=== PATIENT | male | born 2000 | race Caucasian/White ===

== ENCOUNTER 2021-09-16 13:21 | Inpatient (IN) | payer BC, SELFPAY ==
[2021-09-16 13:25] VITALS: BP 135/87; PULSE 61; RESP 16; TEMP 36.5; O2SAT 99; BMI 17.1
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
[2021-09-16 14:37] LABS: Basophils % 0.7 %; Eosinophils % 0.7 %; Hematocrit 39.2 % (42.0-52.0); Hemoglobin 13.1 g/dL (11.7-16.6); Lymphocytes # 2.2 10^3/uL (0.8-4.8); Lymphocytes % 37.7 %; Mean Corpuscular HGB Conc 33.4 g/dL (30.0-36.0); Mean Corpuscular Hemoglobin 30.6 pg (28.0-34.0); Mean Corpuscular Volume 91.6 fl (80-94); Mean Platelet Volume 10.3 fL (7.4-10.4); Monocytes # 0.5 10^3/uL (0.2-0.9); Monocytes % 7.6 %; Neutrophils # 3.12 10^3/uL (1.8-7.7); Nucleated Red Blood Cells % 0 %; Platelet Count 230 10^3/cmm (130-400); Red Blood Count 4.28 10^6/uL (4.1-5.3); Red Cell Distribution Width 12.7 % (12.1-15.1); White Blood Count 5.9 10^3/uL (4.0-10.0)
[2021-09-16 14:52] LABS: Amphetamines Screen Urine Negative (Negative); Barbiturates Screen Urine Negative (Negative); Benzodiazepines Screen Urine Negative (Negative); Cocaine Screen Urine Negative (Negative); Opiate Screen Urine Negative (Negative); PCP Screen Urine Negative (Negative); THC Screen Urine Positive (Negative)
[2021-09-16 15:03] LABS: Alanine Aminotransferase 11 U/L (0-41); Albumin Level 4.7 g/dL (3.5-5.2); Alkaline Phosphatase 54 IU/L (40-130); Anion Gap 12.6 (5-19); Aspartate Amino Transferase 18 U/L (0-40); Blood Urea Nitrogen 16 mg/dL (6-20); Calcium 9.5 mg/dL (8.5-10.5); Carbon Dioxide 24 mmol/L (22-29); Chloride 106 mmol/L (98-107); Globulin 2.5 g/dL (1.3-4.6); Glucose 92 mg/dL (65-115); Osmolality Calculated 289 mOsm/kg (285-295); Potassium 3.6 mmol/L (3.5-5.1); Sodium 139 mmol/L (136-145); Total Bilirubin 1.1 mg/dL (0.15-1.2); Total Protein 7.2 g/dL (6.6-8.7)
[2021-09-16 15:04] LABS: Acetaminophen < 5.0 ug/mL (10-30); Alcohol Level < 10 mg/dL (0-10); Salicylate < 0.3 mg/dL (3-10)
[2021-09-16 15:10] VITALS: BP 116/75; PULSE 54; RESP 16; TEMP 36; O2SAT 100
[2021-09-16] MEDS: nicotine 2 mg Gum BUCCAL ×3 (17:09→21:15)
[2021-09-16 20:42] VITALS: BP 125/74; PULSE 61; RESP 16; TEMP 36.6; O2SAT 100
[2021-09-17 06:00] VITALS: BP 86/50; PULSE 60; RESP 17; TEMP 36.5; O2SAT 99
[2021-09-17] MEDS: nicotine 2 mg Gum BUCCAL ×4 (08:21→16:49)
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
[2021-09-17 14:00] VITALS: BP 104/58; PULSE 52; RESP 18; TEMP 36.3; O2SAT 98
--- NOTE | 2021-09-17 20:18 | PC.NURSE ---
patient on phone, visibly angry. patient slams phone, comes up to nurses station and states I wasn't aware I was going to be here for 3 or 4 days, I haven't gotten any new meds, I am done I want to leave. Dr. Dillon notified, patient is not on 96 hour hold and does not have affidavits, he is voluntary. Dr. Dillon said it is okay for patient to leave. patient notified of this, he stormed off to his room and states fuck this I will just stay this is bullshit .
--- NOTE | 2021-09-17 20:49 | PC.NURSE ---
patient unable to be verbally redirected by staff. patient continues to raise his voice, use profanity, threatening self harm
--- NOTE | 2021-09-17 20:49 | PC.NURSE ---
Addendum entered by Kailey Cantu RN 09/17/21 20:53: no obvious profuse bleeding, minor superficial cuts to anterior right wrist. patient does not want it dressed or bandaid. Original Note: another patient notified nursing staff that Hank was cutting himself in his room. Hank had partially torn the outlet off the wall and had attempted to cut his wrists with it. no obvious bleeding, deformity, or injury noted. Dr. Xavier notified, wants patient to be 1 on 1 with a sitter. nursing staff at bedside with patient.
[2021-09-17 20:50] VITALS: BP 104/63; PULSE 58; RESP 19; TEMP 36.8; O2SAT 98
[2021-09-17] MEDS: LORazepam 2 mg Tablet PO (21:05)
[2021-09-17] MEDS: diphenhydrAMINE 50 mg Capsule PO (21:05)
[2021-09-17] MEDS: haloperidol 5 mg Tablet PO (21:05)
[2021-09-18 06:00] VITALS: RESP 17
--- NOTE | 2021-09-18 08:16 | W.PM.NPUPNS ---
Subjective NPU Subjective: He had a difficult night last night. Below other nurses notes: patient on phone, visibly angry. patient slams phone, comes up to nurses station and states I wasn't aware I was going to be here for 3 or 4 days, I haven't gotten any new meds, I am done I want to leave. Dr. Dillon notified, patient is not on 96 hour hold and does not have affidavits, he is voluntary. Dr. Dillon said it is okay for patient to leave. patient notified of this, he stormed off to his room and states fuck this I will just stay this is bullshit . patient unable to be verbally redirected by staff. patient continues to raise his voice, use profanity, threatening self harm another patient notified nursing staff that Hank was cutting himself in his room. Hank had partially torn the outlet off the wall and had attempted to cut his wrists with it. no obvious bleeding, deformity, or injury noted. Dr. Xavier notified, wants patient to be 1 on 1 with a sitter. nursing staff at bedside with patient. no obvious profuse bleeding, minor superficial cuts to anterior right wrist. patient does not want it dressed or bandaid. I saw him this morning as he was leaving the breakfast room. He said someone had eaten his breakfast. He got back into bed. I offered 3 times to make sure they could get him something else and he did not want them. He said he was not that hungry. He said he was still a little groggy from the medicine they gave him last night. He was reminded that the Lexapro 10 mg will start this morning. He was encouraged to go to groups. Mental Status Exam MSE Comments: This is a 21-year-old thin male who appears approximately his stated age and is in no acute distress. He is pleasant and cooperative with the evaluation. He has good eye contact and is well groomed in hospital scrubs. He is in bed and did not sit up. psychomotor activity is normal. Speech is at a regular rate and rhythm, normal volume, good articulation, not pressured. Alert, oriented X3 Attention and concentration appears to be good. Memory is intact Mood is depressed. Affect is mildly dysphoric, a little irritable Thought process is logical and goal-directed. Thought content: Denies auditory and visual hallucinations. No delusions or paranoia are noted. He admits to recent suicidal ideation but is adamant that he would never do it. He denies homicidal ideation. Fund of knowledge is at least average. Insight and judgment appear to be fairly good. Impulse control is poor at times. Cognition: Patient Appearance: Appropriate Level of Consciousness: Awake, Alert, Appropriate and Follows Commands Patient Cognition Impaired: No Ability to Follow Directions: Good Patient Orientation (long list): Person, Place and Time Comprehension Ability: No Impairment Hallucination Type: None Delusion Description: Not Present Thought Process: Appropriate Affect: Affect Description: Guarded Depressive Symptoms: Increased Irritability and Unhappiness Behavior: Patient Behavior: Negative and Withdrawn Speech Pattern: Appropriate and Clear Vitals/I&O/Wt Last Vital Signs Temp 98.2 F 09/17/21 20:50 Pulse 58 L 09/17/21 20:50 Resp 17 09/18/21 06:00 BP 104/63 09/17/21 20:50 Pulse Ox 98 09/17/21 20:50 09/17/21 09/18/21 09/18/21 22:59 06:59 14:59 Intake Total 480 / 780 Balance 480 / 780 Weight last 48 hrs Weight 58.967 kg Data NPU : 09/16/21 14:30 09/16/21 14:30 A&P Assessment and plan (1) Major depressive disorder: Status: Acute (2) Anxiety: Status: Acute (3) Suicidal ideation: Status: Acute Plan This is a 21-year-old male with lifelong depression who has had a series of unfortunate events that led to worsening depression and suicidal ideation. Plan: 1. We will start Lexapro 10 mg daily. 2. Continue every 15 minute checks for safety. 3. Encourage individual, group and milieu therapies. 4. Encourage sober living treatment after discharge at the highest level of care to which he is willing to commit. 5. We will monitor for safety for himself in the community prior to discharge. Involuntary Hold Information 96 Hour Hold: 96 Hour Involuntary Admission: No Attestations NPU Medical Necessity Statement*: Inpatient hospitalization is medically necessary and the clinically appropriate intervention at this time. We will initiate medications and make changes as indicated. Coding Level of Care Code Acute Combat Systems Operator for [facility] Diagnoses Major depressive disorder F32.9 Anxiety F41.9 Suicidal ideation R45.293
[2021-09-18] MEDS: nicotine 2 mg Gum BUCCAL ×4 (11:08→16:53)
[2021-09-18] MEDS: escitalopram 10 mg Tablet PO (11:08)
--- NOTE | 2021-09-18 12:11 | PC.NURSE ---
SITTER ORDER NOTIFIED DR. KAPADIA REGARDING SITTER JUSTIFICATION. PT HAS BEEN CALM AND COOPERATIVE THROUGHOUT SHIFT. CONTINUES TO DENY SI/HI AND AVH AT THIS TIME. DR. KAPADIA GAVE ORDERS TO DISCONTINUE ONE ON ONE SITTER. ORDERS DISCONTINUED. SPOKE WITH PT. STATES HE WAS HAVING A BAD DAY YESTERDAY AND WOKE UP CORBIN. STATES HE IS FEELING BETTER NOW. CONTRACTED FOR SAFETY AND STATES HE WILL NOT SELF HARM AND IF THOUGHTS ARISE HE WILL SPEAK TO STAFF. ALL QUESTION ANSWERED AND SUPPORT VOICED.
[2021-09-18 14:00] VITALS: BP 124/70; PULSE 90; RESP 17; TEMP 36.7; O2SAT 99
--- NOTE | 2021-09-18 14:49 | PC.NURSE ---
EDUCATION PT REQUEST INFORMATION ON NEW MEDICATION LEXAPRO. CARE NOTE SHEET PRINTED ON LEXAPRO DOSE, USAGE AND SIDE EFFECTS. ALL QUESTIONS ANSWERED AND SUPPORT VOICED. PT SIGNED SHEET THAT HE HAS RECEIVED.
[2021-09-18] MEDS: OLANZapine 5 mg ODT PO (18:46)
[2021-09-18 20:12] VITALS: BP 134/60; PULSE 65; RESP 18; TEMP 36.9; O2SAT 97
[2021-09-19 06:00] VITALS: BP 106/70; PULSE 50; RESP 16; TEMP 36.5; O2SAT 99; BMI 17.1
[2021-09-19] MEDS: escitalopram 10 mg Tablet PO (08:08)
[2021-09-19] MEDS: nicotine 2 mg Gum BUCCAL ×5 (08:42→20:35)
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
[2021-09-19 13:17] VITALS: BP 131/76; PULSE 61; RESP 16; TEMP 36.9; O2SAT 100
[2021-09-19] MEDS: trazodone 50 mg Tablet PO (21:23)
[2021-09-19 22:00] VITALS: BP 154/82; PULSE 78; RESP 16; TEMP 36.8; O2SAT 98
[2021-09-20 06:00] VITALS: BP 105/66; PULSE 58; RESP 18; TEMP 36.5; O2SAT 98
[2021-09-20] MEDS: nicotine 2 mg Gum BUCCAL ×6 (06:32→20:31)
[2021-09-20] MEDS: escitalopram 10 mg Tablet PO (08:25)
[2021-09-20] MEDS: acetaminophen 325 mg Tablet 650 MG PO (09:35)
--- NOTE | 2021-09-20 13:38 | W.PM.NPUPNS ---
Subjective NPU Subjective: He said that he is feeling better. He feels much less depressed. He still has anxiety that comes mostly in the evening and when he tries to go to sleep. He does not feel that he has side effects from the Lexapro and would like to increase to 20 mg when he leaves. Mental Status Exam MSE Comments: This is a 21-year-old thin male who appears approximately his stated age and is in no acute distress. He is pleasant and cooperative with the evaluation. He has good eye contact and is well groomed in hospital scrubs. He was found in the hallway just after coming out of group. psychomotor activity is normal. Speech is at a regular rate and rhythm, normal volume, good articulation, not pressured. Alert, oriented X3 Attention and concentration appears to be good. Memory is intact Mood is depressed but better Affect is mildly dysphoric. Thought process is logical and goal-directed. Thought content: Denies auditory and visual hallucinations. No delusions or paranoia are noted. He denies suicidal ideation last 2 days. He denies homicidal ideation. Fund of knowledge is at least average. Insight and judgment appear to be fairly good. Impulse control is poor at times. Cognition: Patient Appearance: Appropriate Level of Consciousness: Awake, Alert, Appropriate and Follows Commands Patient Cognition Impaired: No Ability to Follow Directions: Good Patient Orientation (long list): Person, Place, Time, Name, Age, Birthday, Day of Month, Day of Week, Month, Time of Day and Year Comprehension Ability: No Impairment Hallucination Type: None Delusion Description: Not Present Thought Process: Appropriate Affect: Affect Description: Appropriate and Calm Depressive Symptoms: Increased Irritability and Unhappiness Behavior: Patient Behavior: Appropriate and Cooperative Speech Pattern: Appropriate Vitals/I&O/Wt Last Vital Signs Temp 97.7 F 09/20/21 06:00 Pulse 58 L 09/20/21 06:00 Resp 18 09/20/21 06:00 BP 105/66 09/20/21 06:00 Pulse Ox 98 09/20/21 06:00 Weight last 48 hrs Weight 58.967 kg Weight 58.967 kg Data NPU : 09/16/21 14:30 09/16/21 14:30 A&P Assessment and plan (1) Major depressive disorder: Status: Acute (2) Anxiety: Status: Acute (3) Suicidal ideation: Status: Acute Plan This is a 21-year-old male with lifelong depression who has had a series of unfortunate events that led to worsening depression and suicidal ideation. Plan: 1. We will start Lexapro 10 mg daily. 2. Continue every 15 minute checks for safety. 3. Encourage individual, group and milieu therapies. 4. Encourage sober living treatment after discharge at the highest level of care to which he is willing to commit. 5. We will monitor for safety for himself in the community prior to discharge. Involuntary Hold Information 96 Hour Hold: 96 Hour Involuntary Admission: No Attestations NPU Medical Necessity Statement*: Inpatient hospitalization is medically necessary and the clinically appropriate intervention at this time. We will initiate medications and make changes as indicated. Coding Level of Care Code Acute Oncology Patient Navigator for Jacky Gonzalez Diagnoses Major depressive disorder F32.9 Anxiety F41.9 Suicidal ideation R45.855
[2021-09-20 14:00] VITALS: BP 120/75; PULSE 77; RESP 18; TEMP 36.6; O2SAT 98
[2021-09-20] MEDS: trazodone 50 mg Tablet PO (19:54)
[2021-09-20 20:23] VITALS: BP 130/72; PULSE 78; RESP 17; TEMP 36.6; O2SAT 98
[2021-09-21 06:00] VITALS: BP 113/58; PULSE 90; RESP 17; TEMP 36.7; O2SAT 97
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
[2021-09-21 07:54] VITALS: BP 113/58; PULSE 90; RESP 17; TEMP 36.7; O2SAT 97
[2021-09-21] MEDS: escitalopram 10 mg Tablet PO (10:03)
== END 2021-09-21 10:19 | disposition home or self-care (01) | DRG 881 ==
LOC: ER 15:39 → NP 15:56
PROVIDERS: Admitting Provider Psychiatry & Neurology Psychiatry; Emergency Provider Physician Assistant; PCP Nurse Practitioner Family; Visit Provider Psychiatry & Neurology Psychiatry
DX: F32.9 Major depressive disorder, single episode, unspecified (principal); R45.851 Suicidal ideations; F42.9 Obsessive-compulsive disorder, unspecified; F90.9 Attention-deficit hyperactivity disorder, unspecified type; F41.9 Anxiety disorder, unspecified
CPT/HCPCS: 80053; 80306; 80307; 85025; 97150; 97165; 99285; Q0163

== ENCOUNTER 2022-08-09 19:25 | Inpatient (IN) | payer BC, SELFPAY ==
[2022-08-09] VITALS (11 sets, daily range): BP systolic 78–138; BP diastolic 47–82; PULSE 64–110; RESP 14–22; TEMP 36.8; O2SAT 94–100; BMI 17.1
--- NOTE | 2022-08-09 19:32 | ECG_ITS ---
[facility] Test Date: 2022-08-09 Pat Name: Hank Aguilera Department: Room: Gender: Male [employer]: : [id number] Requested By: Leila Verdin Order Number: [id number] Mata MD: Joo Beal M.D. Measurements Intervals [place] Rate: 79 P: 83 MI: 168 QRS: 81 QRSD: 81 T: 62 QT: 346 QTc: 399 Interpretive Statements SINUS RHYTHM No previous ECG available for comparison Electronically Signed On 08-10-2022 8:08:03 CDT by Joo Beal M.D. [email or web address]
--- NOTE | 2022-08-09 19:46 | ED.C_ITS ---
HPI - Psych General: Chief Complaint: Psychiatric Symptoms Stated Complaint: SI Time Seen by Provider: 08/09/22 19:39 History of Present Illness: Patient was brought in by the police for suicidal ideation. Patient admits to taking a quarter bottle of ibuprofen, sending suicidal text to his ex-girlfriend, he did state he vomited up most of the ibuprofen, admits to that he should be taking medicine for depression but is not taking it. MD complaint: suicidal ideation and feels depressed Duration: constant Relieving factors: none Exacerbating factors: medication (Should be on medicine but is not taking it) Context: not taking psychiatric medications Associated psychiatric symptoms: depression and suicidal ideation Associated symptoms: Reports depression and suicidal ideation If self harm: admits thoughts of self harm, has acted on plan and intentional overdose (Admits to taking 20-30 ibuprofen) Review of Systems General: Reports: 10 or more systems reviewed and unremarkable except in HPI and below Const: Denies: fever(s) or chills Eyes: Denies: change in vision ENMT: Denies: throat pain or odynophagia Card: Denies: chest pain or palpitations Resp: Denies: dyspnea or productive cough GI: Denies: abdominal pain, nausea or vomiting : Denies: flank pain or dysuria Musc: Denies: neck pain or back pain Skin/Breast: Denies: rash or pruritus Neuro: Denies: headache(s), numbness in extremities or weakness in extremities Psych: Reports: depression and suicidal ideation [facility] ED PFSH: Medical History Psychiatric care Social History Smoking and tobacco status: current every day smoker (vape) Physical Exam Const: COMMON NORMALS: no acute distress, average body habitus, patient oriented x3, no limitations, healthy appearing, alert and well nourished HENMT: COMMON NORMALS: normocephalic, atraumatic, hearing grossly normal bilaterally, external ears normal and Normal external nose present HEAD & SCALP: normocephalic and atraumatic NOSE: Normal external nose present EXTERNAL EAR: Yes external ears normal Eye: COMMON NORMALS: Equal, round and reactive pupils present, EOMs intact bilaterally, conjunctivae normal and no scleral icterus CONJUNCTIVA: Yes conjunctivae normal PUPIL: Yes Equal, round and reactive pupils present Neck/C-Spine: COMMON NORMALS: full ROM, no lymphadenopathy, supple, no JVD and Thyroid normal THYROID: Thyroid normal Lymph: LYMPHATIC: no lymphadenopathy noted Chest: COMMONS NORMALS: normal inspection of the chest and normal palpation of entire chest wall Resp: COMMON NORMALS: normal respiratory effort, No retractions, No use of accessory muscles and clear to auscultation bilaterally AUSCULTATION: clear to auscultation bilaterally Cardio: COMMON NORMALS: no JVD, regular rate, regular rhythm, S1 normal heart sound present and S2 normal heart sound present RATE: regular rate RHYTHM: regular rhythm HEART SOUNDS: S1 normal heart sound present and S2 normal heart sound present GI: COMMON NORMALS: Normal to inspection, nondistended, normoactive bowel sounds present, Soft to palpation, non-tender, No hepatosplenomegaly present and no masses PALPATION: Yes Soft to palpation and Yes No hepatosplenomegaly present : COMMON NORMALS: Yes no CVA tenderness BLADDER/KIDNEY EXAM: Yes no CVA tenderness Back/Pelvis: COMMON NORMALS: no CVA tenderness Neuro: COMMON NORMALS: patient oriented x3, CN's II-XII intact bilaterally, moves all extremities, no focal motor deficits and no sensory deficits noted SENSORIUM/ORIENTATION: Yes alert Psych: COMMON NORMALS: speech normal APPEARANCE: Yes grossly normal ATTITUDE: Yes calm ACTIVITY/MOTOR BEHAVIOR: Yes appropriate eye contact SPEECH: Yes normal speech MOOD & AFFECT: Yes euthymic mood THOUGHT CONTENT: Yes Suicidality present Course Vital Signs: Vital signs: Vital Signs Temperature 98.3 F 08/09/22 19:26 Pulse Rate 66 08/09/22 20:02 Respiratory Rate 14 08/09/22 20:02 Blood Pressure 118/72 08/09/22 19:47 Pulse Oximetry 99 08/09/22 20:02 Oxygen Delivery Me thod 08/09/22 19:47 MDM - Psych Medical Decision Making Patient presents to the ER by EMS with police shortly after. Patient been having suicidal ideations, he did attempt to swallow 20-30 [id number] ibuprofen earlier today but then he said he vomited them up very shortly afterwards. Patient does say he should be on psychiatric medicine but has not been taking it for quite some time. Patient is voluntary at this time. Police did write a statement which is in his chart. Lab work and EKG were obtained. They are essentially benign other than urine showing trace leukocyte Estrace 0-4 white blood cells red blood cells and squamous cells with 1+ bacteria, salicylates acetaminophen and ethanol were negative, urine drug screen was positive for marijuana. Dr. Menjivar psychiatry was consulted who agreed to admit this patient for further evaluation and treatment. Differential Diagnosis Likely suicidal ideation Lab Data 08/09/22 19:40 08/09/22 19:40 Laboratory Results WBC 7.0 10^3/uL (4.0-10.0) 08/09/22 19:40 RBC 4.18 10^6/uL (4.1-5.3) 08/09/22 19:40 Hgb 12.7 g/dL (11.7-16.6) 08/09/22 19:40 Hct 37.9 % (42.0-52.0) L 08/09/22 19:40 MCV 90.7 fl (80-94) 08/09/22 19:40 MCH 30.4 pg (28.0-34.0) 08/09/22 19:40 MCHC 33.5 g/dL (30.0-36.0) 08/09/22 19:40 RDW 12.7 % (12.1-15.1) 08/09/22 19:40 Plt Count 260 10^3/cmm (130-400) 08/09/22 19:40 MPV 10.2 fL (7.4-10.4) 08/09/22 19:40 Neut % (Auto) 69.2 % 08/09/22 19:40 Lymph % (Auto) 23.0 % 08/09/22 19:40 [place] % (Auto) 6.2 % 08/09/22 19:40 Eos % (Auto) 0.4 % 08/09/22 19:40 Baso % (Auto) 0.9 % 08/09/22 19:40 Neut # (Auto) 4.82 10^3/uL (1.8-7.7) 08/09/22 19:40 Lymph # (Auto) 1.6 10^3/uL (0.8-4.8) 08/09/22 19:40 [place] # (Auto) 0.4 10^3/uL (0.2-0.9) 08/09/22 19:40 Eos # (Auto) 0.0 10^3/uL (0.0-0.8) 08/09/22 19:40 Baso # (Auto) 0.1 10^3/uL (0.0-0.1) 08/09/22 19:40 Nucleated RBC % (auto) 0 % 08/09/22 19:40 Nucleated RBCs # 0.0 /100WBC 08/09/22 19:40 Sodium 140 mmol/L (136-145) 08/09/22 19:40 Potassium 3.5 mmol/L (3.5-5.1) 08/09/22 19:40 Chloride 105 mmol/L (98-107) 08/09/22 19:40 Carbon Dioxide 23 mmol/L (22-29) 08/09/22 19:40 Anion Gap 15.5 (5-19) 08/09/22 19:40 BUN 13 mg/dL (6-20) 08/09/22 19:40 Creatinine 1.0 mg/dL (0.7-1.2) 08/09/22 19:40 GFR Calculation 93.4 mL/min (90-130) 08/09/22 19:40 Glucose 104 mg/dL (65-115) 08/09/22 19:40 Calculated Osmolality 290 mOsm/kg (285-295) 08/09/22 19:40 Calcium 9.3 mg/dL (8.5-10.5) 08/09/22 19:40 Total Bilirubin 0.9 mg/dL (0.15-1.2) 08/09/22 19:40 AST 20 U/L (0-40) 08/09/22 19:40 ALT 23 U/L (0-41) 08/09/22 19:40 Alkaline Phosphatase 52 U/L (40-130) 08/09/22 19:40 Total Protein 7.5 g/dL (6.6-8.7) 08/09/22 19:40 Albumin 4.7 g/dL (3.5-5.2) 08/09/22 19:40 Globulin 2.8 g/dL (1.3-4.6) 08/09/22 19:40 Urine Color Yellow (Yellow) 08/09/22 19:44 Urine Appearance Clear (CLEAR) 08/09/22 19:44 Urine pH 5 (5-7) 08/09/22 19:44 Ur Specific [place] 1.020 (1.005-1.030) 08/09/22 19:44 Urine Protein 2+ (Negative) H 08/09/22 19:44 Urine Glucose (UA) Norm (Normal) 08/09/22 19:44 Urine Ketones 1+ (Negative) H 08/09/22 19:44 Urine Blood Neg (Negative) 08/09/22 19:44 Urine Nitrate Negative (Negative) 08/09/22 19:44 Urine Bilirubin 1+ (Negative) H 08/09/22 19:44 Urine Urobilinogen 4 mg/dL (Negative) H 08/09/22 19:44 Ur Leukocyte Esterase Trace (Negative) H 08/09/22 19:44 Urine RBC 0-4 /hpf (0-2) H 08/09/22 19:44 Urine WBC 0-4 /hpf (0-5) H 08/09/22 19:44 Ur Squamous Epith Cells 0-4 /hpf (0-5) H 08/09/22 19:44 Amorphous Sediment Trace /hpf 08/09/22 19:44 Urine Bacteria 1+ /hpf (NONE) H 08/09/22 19:44 Salicylates 0.5 mg/dL (3-10) L 08/09/22 19:40 Urine Opiates Screen Negative ng/mL (Negative) 08/09/22 19:44 Acetaminophen < 5.0 ug/mL (10-30) L 08/09/22 19:40 Ur Barbiturates Screen Negative ng/mL (Negative) 08/09/22 19:44 Ur Phencyclidine Scrn Negative ng/mL (Negative) 08/09/22 19:44 Ur Amphetamines Screen Negative ng/mL (Negative) 08/09/22 19:44 U Benzodiazepines Scrn Negative ng/mL (Negative) 08/09/22 19:44 Urine Cocaine Screen Negative ng/mL (Negative) 08/09/22 19:44 U Marijuana (THC) Screen Positive ng/mL (Negative) H 08/09/22 19:44 Ethyl Alcohol < 10 mg/dL (0-10) 08/09/22 19:40 EKG Data EKG 1: I personally reviewed and interpreted this EKG as follows: EKG interpretation date: 08/09/22 EKG interpretation time: 19:34 Prior EKG tracings: not available for review Interpretation: EKG showed normal sinus rhythm at 79 bpm, ND interval 168, QRS duration 81, QTc of [address] and T wave changes Discharge Plan Discharge Patient Disposition: Admitted As Inpatient Clinical Impression: Suicidal ideation Condition: Stable Prescriptions: No Action No Known Home Medications Referrals: Robert Landis FNP [Primary Care Provider] - Coding Level of Care Code ED Vice President [employer] for Jacky Gonzalez
[2022-08-09 19:52] LABS: Basophils # 0.1 10^3/uL (0.0-0.1); Basophils % 0.9 %; Eosinophils % 0.4 %; Hematocrit 37.9 % (42.0-52.0); Hemoglobin 12.7 g/dL (11.7-16.6); Lymphocytes # 1.6 10^3/uL (0.8-4.8); Mean Corpuscular HGB Conc 33.5 g/dL (30.0-36.0); Mean Corpuscular Hemoglobin 30.4 pg (28.0-34.0); Mean Corpuscular Volume 90.7 fl (80-94); Mean Platelet Volume 10.2 fL (7.4-10.4); Monocytes # 0.4 10^3/uL (0.2-0.9); Monocytes % 6.2 %; Neutrophils # 4.82 10^3/uL (1.8-7.7); Neutrophils % 69.2 %; Nucleated Red Blood Cells % 0 %; Platelet Count 260 10^3/cmm (130-400); Red Blood Count 4.18 10^6/uL (4.1-5.3); Red Cell Distribution Width 12.7 % (12.1-15.1)
[2022-08-09 20:12] LABS: Add Urine Culture? No; Add Urine Microscopic? YES; Amorphous Sediment Urine TRACE /hpf; Bacteria Urine 1+ /hpf; Bilirubin Urine 1+ (Negative); Blood Urine Neg (Negative); Glucose Urine UA Norm (Normal); Ketones Urine 1+ (Negative); Leukocyte Esterase Urine Trace (Negative); Nitrate Urine Negative (Negative); Protein Urine 2+ (Negative); RBC Urine 0-4 /hpf (0-2); Squamous Epithelial Cell Urine 0-4 /hpf (0-5); Urine Appearance Clear (CLEAR); Urine Color Yellow (Yellow); Urobilinogen Urine 4 mg/dL (Negative); WBC Urine 0-4 /hpf (0-5); pH Urine 5 (5-7)
[2022-08-09 20:15] LABS: Amphetamines Screen Urine Negative (Negative); Barbiturates Screen Urine Negative (Negative); Benzodiazepines Screen Urine Negative (Negative); Cocaine Screen Urine Negative (Negative); Opiate Screen Urine Negative (Negative); PCP Screen Urine Negative (Negative); THC Screen Urine Positive (Negative)
[2022-08-09 20:15] LABS: Alanine Aminotransferase 23 U/L (0-41); Albumin Level 4.7 g/dL (3.5-5.2); Alkaline Phosphatase 52 U/L (40-130); Anion Gap 15.5 (5-19); Aspartate Amino Transferase 20 U/L (0-40); Blood Urea Nitrogen 13 mg/dL (6-20); Calcium 9.3 mg/dL (8.5-10.5); Carbon Dioxide 23 mmol/L (22-29); Chloride 105 mmol/L (98-107); Creatinine Clr Calc Pharmacy 96.6404; Globulin 2.8 g/dL (1.3-4.6); Glomerular Filtration Rate 93.4 mL/min (90-130); Glucose 104 mg/dL (65-115); Osmolality Calculated 290 mOsm/kg (285-295); Potassium 3.5 mmol/L (3.5-5.1); Salicylate 0.5 mg/dL (3-10); Sodium 140 mmol/L (136-145); Total Bilirubin 0.9 mg/dL (0.15-1.2); Total Protein 7.5 g/dL (6.6-8.7)
[2022-08-09 20:17] LABS: Acetaminophen < 5.0 ug/mL (10-30); Alcohol Level < 10 mg/dL (0-10)
[2022-08-09] MEDS: diphenhydrAMINE 50 mg/mL SDV 1mL IM (21:30)
[2022-08-09] MEDS: haloperidol inj 5 mg/mL INJ 1 mL IM (21:30)
[2022-08-09] MEDS: LORazepam 2 mg/mL INJ 1 mL IM (21:30)
[2022-08-10] VITALS (13 sets, daily range): BP systolic 78–112; BP diastolic 46–75; PULSE 60–94; RESP 16–18; TEMP 36.2–36.6; O2SAT 94–99
--- NOTE | 2022-08-10 03:08 | PC.NURSE ---
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 form setter supervisor and Security on unit. captain of guards, Planning Analyst, and Security made aware of MD order. Received in report pt calm and cooperative in ED, pt was originally placed on North, RN and Security asked pt to walk to South unit and sit on bench to talk with him, pt walked willingly, discussed options with pt as per MD orders, pt continued to escalate, making statements, he can be a spider monkey and climb in the ceiling and nobody will ever find him , I will be getting out of here tonight no matter what and y'all can't stop me at 2124 pt continued to escalate hitting his head on the wall x3, at 2125 a code 10 was called at 2129 Benadryl 50mg, Ativan 2mg, Haldol 5mg ready at 2130 pt hit his head again at 2130 pt to the floor at 2131 medications administered to left lateral thigh pt continued to be aggressive, attempting to kick and swing at staff, Planning Analyst called for ED physician to assist in escorting patient to restraint room. pt was yelling profanities at staff and patients. pt yelled to another peer I'm going to kick your ass at 2136 ED physician on unit to assist, pt up and off the floor from physical restraint and escorted to restraint room at 2137 physical restraints off at 2139 pt in restraint bed, making verbal self harm threats, stating fuck you all, I will kill myself one way or another i'm freaking out I will use your equipment to kill myself RNs, Planning Analyst, and other staff at bedside at 2144 pt on restraint bed aggressive, attempting to break restraints loose, RNs and other staff at bedside attempting to calm pt and prevent injury at 2150 Director of NPU in restraint room at 2154 Planning Analyst asks pt if he was in pain or if anything hurt? pt replied no RN assessed back of head, no apparent injuries noted at time while pt on restraint bed. at 215 Left leg restraint removed at 215 Right leg restraint removed at 2208 Left hand restraint removed at 221 Right hand restraint removed pt sleeping on restraint bed, monitored by RN and housekeeping and laundry team leader on unit, sitter at bedside at 2225 MD on unit for face to face evaluation at 2343 pt ambulated from restraint bed to patient bed, no aggression, no distress noted MD aware of abnormal vitals low blood pressure, pt hitting head on wall multiple times, no orders given. Nursing judgement RNs doing neuro checks, monitor vital signs. form setter supervisor aware of vitals signs and has been on unit multiple times for follow up. Security on unit multiple times rounding. pt has been resting in bed, easily arousable, no apparent distress noted, monitored by viscose cellar charge hand and unit RN. 1:1 Sitter at bedside at all times. vital signs taken.
--- NOTE | 2022-08-10 06:46 | PC.NURSE ---
Patient has rested comfortably during the night. This play writer was involved with care this shift. Monitored patient's VS and condition closely. No signs of distress noted. Patient did state @0600 that the back of his head was sore. Denied H/A or dizziness. Fluids offered during shift and taken. Continues with 1:1 at bedside for safety.
--- NOTE | 2022-08-10 09:03 | PC.OT ---
OT EVALUATION ORDERS RECEIVED. PER NURSING; HOLD EVALUATION AT THIS TIME DUE TO PATIENT AGGRESSION. WILL ATTEMPT AGAIN AT A LATER TIME.
[2022-08-10] MEDS: nicotine 2 mg Gum BUCCAL ×4 (10:30→19:55)
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
[2022-08-10] MEDS: hyDROXYzine 25 mg Capsule 50 MG PO (20:38)
[2022-08-11 06:00] VITALS: RESP 16
[2022-08-11] MEDS: nicotine 2 mg Gum BUCCAL ×5 (08:28→18:07)
--- NOTE | 2022-08-11 13:39 | W.PM.NPUPNS ---
Subjective NPU Subjective: Patient presented today continuing to have decrease in his notable irritability while on the unit. Patient continues to report improving attitude and improving insight into the problems with his behavior pattern that led him to the hospital. He continues to be resistant to medication. He continues to be hopeful for discharge soon. We discussed working with the treatment team to make sure he has appropriate appointments for discharge. Mental Status Exam MSE Comments: This is a underweight white male with hospital scrubs on with limited grooming and eye contact. No abnormal movements except for mild psychomotor agitation. Limited cooperation with exam in mild distress. Speech was decreased rate and volume. Mood described as better, affect congruent. Thought process organized. Thought content: Patient denied current suicidal or homicidal ideation but is wanting to be discharged, there were no delusions reported or noted, he denied any auditory or visual hallucinations. Attention and concentration were intact and memory appeared mostly reliable but none were formally tested. He is alert and oriented x3. Insight and judgment are limited but improving and impulse control is impaired. Vitals/I&O/Wt Last Vital Signs Temp 97.6 F 08/10/22 21:07 Pulse 92 08/10/22 21:07 Resp 16 08/11/22 06:00 BP 112/75 08/10/22 21:07 Pulse Ox 97 08/10/22 21:07 O2 Del Method 08/10/22 21:07 Weight last 48 hrs Weight 58.967 kg Data NPU 08/09/22 19:40 08/09/22 19:40 A&P Assessment and plan (1) Major depressive disorder: (2) Anxiety: (3) Suicidal ideation: Plan This is a 22-year-old male with lifelong depression who returns to NPU again with worsening depression and suicidal ideation. Plan: 1. He is currently refusing to try any medications. 2. Continue every 15 minute checks for safety. 3. Encourage individual, group and milieu therapies. 4. Encourage sober living treatment after discharge at the highest level of care to which he is willing to commit. 5. We will monitor for safety for himself in the community prior to discharge given the 96-hour hold. Involuntary Hold Information 96 Hour Hold: 96 Hour Involuntary Admission: Yes 96 Hour Hold Ending Date: 08/15/22 96 Hour Hold Ending Time: 21:10 Attestations NPU Medical Necessity Statement*: Inpatient hospitalization is medically necessary and the clinically appropriate intervention at this time. We will initiate medications and make changes as indicated. Likely length of stay 2-4 days Coding Level of Care Code Acute Code for Chg Fwd Diagnoses Major depressive disorder F32.9 Anxiety F41.9 Suicidal ideation R45.851
[2022-08-11 14:00] VITALS: BP 135/66; PULSE 69; RESP 20; TEMP 36.4; O2SAT 98
[2022-08-11] MEDS: hyDROXYzine 25 mg Capsule 50 MG PO (20:38)
[2022-08-11] MEDS: trazodone 50 mg Tablet PO (20:38)
[2022-08-11] MEDS: nicotine 4 mg lozenge MUCOUS MEM (20:39)
[2022-08-11 22:00] VITALS: BP 137/89; PULSE 79; RESP 16; TEMP 36.9; O2SAT 98
[2022-08-12 06:00] VITALS: RESP 15
[2022-08-12] MEDS: nicotine 2 mg Gum BUCCAL ×6 (08:45→19:56)
[2022-08-12 13:25] VITALS: BP 136/75; PULSE 81; RESP 17; TEMP 36.7; O2SAT 96
--- NOTE | 2022-08-12 13:54 | P.NPUPN_ITS ---
Subjective NPU Subjective: Patient presented today reporting that he is feeling much better. He reports that he understands the problems with how he was managing himself prior to admission. He reports a desire to get out of here, continue with work may be get some more work hours and get past the issue surrounding his ex- girlfriend. He was able to contract for safety and we discussed the likelihood of discharge tomorrow. Mental Status Exam MSE Comments: This is a underweight white male with hospital scrubs on with limited grooming and eye contact. No abnormal movements. Cooperative with exam in no acute distress. Speech was normal rate and volume. Mood described as better, affect congruent. Thought process organized. Thought content: Patient denied current suicidal or homicidal ideation, there were no delusions reported or noted, he denied any auditory or visual hallucinations. Attention and concentration were intact and memory appeared mostly reliable but none were formally tested. He is alert and oriented x3. Insight and judgment are improving and impulse control is improving. Vitals/I&O/Wt Last Vital Signs Temp 98.1 F 08/12/22 13:25 Pulse 81 08/12/22 13:25 Resp 17 08/12/22 13:25 BP 136/75 08/12/22 13:25 Pulse Ox 96 08/12/22 13:25 O2 Del Method 08/11/22 22:00 Data NPU 08/09/22 19:40 08/09/22 19:40 A&P Assessment and plan (1) Major depressive disorder: (2) Anxiety: (3) Suicidal ideation: Plan This is a 22-year-old male with lifelong depression who returns to NPU again with worsening depression and suicidal ideation. Plan: 1. He is currently refusing to try any medications. 2. Continue every 15 minute checks for safety. 3. Encourage individual, group and milieu therapies. 4. Encourage sober living treatment after discharge at the highest level of care to which he is willing to commit. 5. Tentative discharge tomorrow. Involuntary Hold Information 96 Hour Hold: 96 Hour Involuntary Admission: Yes 96 Hour Hold Ending Date: 08/15/22 96 Hour Hold Ending Time: 21:10 Attestations NPU Medical Necessity Statement*: Inpatient hospitalization is medically necessary and the clinically appropriate intervention at this time. We will initiate medications and make changes as indicated. Likely length of stay 1-3 days Coding Level of Care Code Acute Code for Chg Fwd Diagnoses Major depressive disorder F32.9 Anxiety F41.9 Suicidal ideation R45.851
[2022-08-12 20:13] VITALS: BP 114/69; PULSE 72; RESP 16; TEMP 37.2; O2SAT 96
[2022-08-13 06:00] VITALS: BP 98/61; PULSE 68; RESP 16; TEMP 36.8; O2SAT 98
[2022-08-13] MEDS: nicotine 2 mg Gum BUCCAL ×2 (07:39→10:35)
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
[2022-08-13 10:12] VITALS: BP 98/61; PULSE 68; RESP 16; TEMP 36.8; O2SAT 98
--- NOTE | 2022-08-13 11:08 | PC.NURSE ---
Discharge information, including appointments and prescriptions, were reviewed with patient. Pt verbalized his understanding. Pt said he was ready to go; denied suicidal/homicidal thoughts. 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 Pt awaiting his ride. A return to work notice and a notice defining the days pt was hospitalized was provided to the pt per his request.
== END 2022-08-13 11:14 | disposition home or self-care (01) | DRG 918 ==
LOC: ER 20:36 → NP 08-10 06:21
PROVIDERS: Admitting Provider Psychiatry & Neurology Psychiatry; Emergency Provider Emergency Medicine; PCP Nurse Practitioner Family; Visit Provider Psychiatry & Neurology Psychiatry
DX: T39.312A Poisoning by propionic acid derivatives, intentional self-harm, initial encounter (principal); R45.851 Suicidal ideations; F32.9 Major depressive disorder, single episode, unspecified; Z63.0 Problems in relationship with spouse or partner; F17.290 Nicotine dependence, other tobacco product, uncomplicated; F41.9 Anxiety disorder, unspecified
CPT/HCPCS: 80053; 80306; 80307; 81001; 85025; 93005; 96372; 97150; 97165; 99285; J1200; J1630; J2060

== ENCOUNTER 2023-04-11 15:22 | Emergency (ER) | payer SELFPAY ==
[2023-04-11 15:54] VITALS: BP 121/71; PULSE 78; RESP 16; TEMP 36.8; O2SAT 97; BMI 19.8
--- NOTE | 2023-04-11 17:21 | ED_ITS ---
HPI - Wound/Laceration General: Chief Complaint: Wound/Laceration Stated Complaint: laceration right pointer Time Seen by Provider: 04/11/23 16:41 Source: patient Mode of arrival: ambulatory Limitations: no limitations History of Present Illness: 23-year-old male states he was drilling through a ceiling and went through faster and caught his right index finger he does have a 1 cm laceration middle p ortion of his palmar surface of his index finger. Bleeding is controlled at this time he has full range of motion he has pain he rates a 3 out of 10. He is unsure when his last tetanus was. Denies any other injuries Associated symptoms: Denies chills, fever(s), nausea or vomiting Review of Systems Const: Denies: fever(s) or chills ENMT: Denies: throat pain or dental pain Card: Denies: chest pain Resp: Denies: dyspnea GI: Denies: abdominal pain, nausea, vomiting or diarrhea Musc: Reports: extremity pain; Denies: neck pain or back pain Skin/Breast: Denies: rash Neuro: Denies: headache(s) PFSH ED PFSH: Social History Smoking and tobacco/nicotine status: current every day tobacco/nicotine user (vape) Physical Exam Const: COMMON NORMALS: no acute distress and patient oriented x3 HENMT: COMMON NORMALS: normocephalic and atraumatic HEAD & SCALP: normocephalic and atraumatic Eye: COMMON NORMALS: conjunctivae normal CONJUNCTIVA: Yes conjunctivae normal Chest: COMMONS NORMALS: normal inspection of the chest Resp: COMMON NORMALS: normal respiratory effort Extremity: OTHER: 1 cm laceration over palmar aspect of ri ght index finger in the middle portion of the finger no tendon involvement laceration superficial no bleeding at this time he has full range of motion and strength Neuro: COMMON NORMALS: patient oriented x3 Psych: COMMON NORMALS: mental status grossly normal Skin: COMMON NORMALS: no rashes or lesions noted GENERAL SKIN EXAM: no rashes or lesions noted Procedures Laceration Laceration 1: Site: hand Side (If applicable): right Size (cm): 1 Description: linear Depth: simple, single layer Pre-repair: wound explored, irrigated extensively and deep structures intact Skin layer closed with: other (dermabond) Course Vital Signs: Vital signs: Vital Signs Temperature 98.2 F 04/11/23 15:54 Pulse Rate 78 04/11/23 15:54 Respiratory Rate 16 04/11/23 15:54 Blood Pressure 121/71 04/11/23 15:54 Pulse Oximetry 97 04/11/23 15:54 Oxygen Delivery Me thod Room Air 04/11/23 15:54 MDM - Wound/Laceration Medical Decision Making Patient presents here with a superficial laceration to his finger did update his tetanus was able to repair with Dermabond he stable for discharge follow-up with PCP and return if worsening. Medical Records I reviewed the patient's medical records. No radiology studies performed this visit Discharge Plan Discharge Patient Disposition: Home Clinical Impression: Laceration Condition: Stable Prescriptions: No Action No Known Home Medications trazodone 50 mg Tablet 50 mg PO BEDTIME PRN (Reason: Sleep) 30 Days Qty: 30 1RF Discharge Orders: Discharge ED (Routine); Ordered 04/11/23 Ordered By: Leila Verdin Referrals: Robert Landis FNP [Primary Care Provider] - 4-7 days Patient Instructions: Skin Adhesive Care (ED) Coding Level of Care Code ED Development Planner for Jacky Gonzalez
[2023-04-11] MEDS: tetanus-dipt-pertussis 0.5 mL SDV IM (17:22)
== END 2023-04-11 17:35 | disposition home or self-care (01) ==
PROVIDERS: Emergency Provider Emergency Medicine; PCP Nurse Practitioner Family
DX: S61.210A Laceration without foreign body of right index finger without damage to nail, initial encounter (principal); X58.XXXA Exposure to other specified factors, initial encounter; F17.290 Nicotine dependence, other tobacco product, uncomplicated; Z23 Encounter for immunization
CPT/HCPCS: 12001; 90471; 90715; 99283